=== PATIENT | male | born 1975 | race Two or more races ===

== ENCOUNTER → 2025-01-31 | Outpatient (CLI) | payer MEDICAID, SELFPAY ==
--- NOTE | 2025-01-31 14:29 | XR_ITS ---
Examination: Lumbar spine 3 views Technique one AP lateral coned lateral lower lumbar spine 3 views Exam date and time: January 31, 2025 at 1439 hours INDICATIONS: Low back pain beginning one year ago. FINDINGS: Adequate alignment lumbar vertebral bodies No lumbar fracture Minimal disc narrowing L4-L5 IMPRESSION: Early degenerative disc disease L4-L5
== END | disposition home or self-care (01) ==
PROVIDERS: PCP Physician Assistant; Referring Provider Physician Assistant; Visit Provider Physician Assistant
DX: M51.360 Other intervertebral disc degeneration, lumbar region with discogenic back pain only (principal)
CPT/HCPCS: 72100

== ENCOUNTER → 2025-06-02 | Outpatient (CLI) | payer MEDICAID, SELFPAY ==
--- NOTE | 2025-06-02 10:00 | XR_ITS ---
Examination: MRI lumbar spine without contrast Date and time of exam: June 02, 2025, 10:23 AM Indications: Lower back pain stiffness beginning 2 years ago. Technique: Multiple MRI axial and sagittal sections lumbar spine. Sagittal T2-weighted images, TR 3500, TE 118 T1 weighted transverse sections, TR 688 T8.5, T2-weighted sagittal sections T1 weighted sagittal sections TR 621, TE 30 T2 axial sections, TR 4, 190, TE 84. Findings: Satisfactory alignment lumbar vertebral bodies on the lateral view. Disc desiccation L4-L5. Normal marrow signal lumbar vertebral bodies. No lumbar fracture. No spondylolisthesis. L5-S1 no disc protrusion L4-L5 2 mm central lumbar disc bulge L3-L4 no disc protrusion. L2-L3 no disc protrusion. L1-L2 no disc protrusion. Impression: L4-L5 2 mm central lumbar disc bulge extending to the foraminal regions, no ganglionic compression.
== END | disposition home or self-care (01) ==
PROVIDERS: Referring Provider Physician Assistant; Visit Provider Physician Assistant
DX: M51.360 Other intervertebral disc degeneration, lumbar region with discogenic back pain only (principal)
CPT/HCPCS: 72148